=== PATIENT | female | born 1940 | race Two or more races ===

== ENCOUNTER 2021-06-12 09:35 | Emergency (ER) | payer OTHER ==
[~2021-06-12] VITALS: Ht 162.6 cm; Wt 113.4 kg
[2021-06-12 11:11] LABS: Basophils # (auto) 0 10 ^3/uL (0-0.2); Eosinophils # (auto) 0.1 10 ^3/uL (0-0.8); Lymphocytes # (auto) 0.3 10 ^3/uL (0.4-5.4); Lymphocytes % (auto) 30.3 % (10.0-50.0); Monocytes # (auto) 0 10 ^3/uL (0-1.3)
[2021-06-12 11:14] LABS: Basophils % (auto) 1.2 % (0.0-2.0); Eosinophils % (auto) 10.3 % (0.0-7.0); Hematocrit 18.5 % (36.0-46.0); Mean Corpuscular Hemoglobin 33.2 pg (28.0-32.0); Mean Corpuscular Volume 90.6 fL (80.0-100.0); Monocytes % (auto) 1.5 % (0.0-12.0); Neutrophils # (auto) 0.6 10 ^3/uL (1.6-8.6); Neutrophils % (auto) 56.7 % (37.0-80.0); Nucleated Red Blood Cells % 0.3 %; Red Blood Cells 2.04 10^6/uL (4.0-5.20); Red Cell Distribution Width 15.8 % (11.8-14.3)
[2021-06-12 11:28] LABS: Albumin 3.3 g/dL (3.4-5.0); Calcium 8.9 mg/dL (8.5-10.1); Potassium 3.2 mmol/L (3.5-5.1)
[2021-06-12 11:35] LABS: Bilirubin, Total 1.2 mg/dL (0.2-1.0); Total Protein 6.8 g/dL (6.4-8.2)
[2021-06-12 11:39] LABS: Hemoglobin 6.8 g/dL (12.2-16.2); Mean Corpuscular Hgb Conc. 36.6 g/dL (32.0-36.0); White Blood Cell 1.1 10^3/uL (4.4-10.8)
[2021-06-12 12:45] LABS: Urine Bacteria NONE SEEN /hpf (None Seen); Urine Blood Negative /uL (Negative); Urine Specific Gravity 1.006 (1.001-1.035); Urine WBC 1 /hpf (0 - 5)
[2021-06-12 15:09] VITALS: BP 132/54
[2021-06-12 15:24] VITALS: BP 142/55
[2021-06-12 16:09] VITALS: BP 139/57
== END 2021-06-12 16:54 | disposition short-term general hospital (02) ==
LOC: ER 09:35
DX: D64.89 Other specified anemias (principal)
CPT/HCPCS: 36415; 36430; 70450; 71045; 80053; 81001; 84484; 85025; 86850; 86900; 86901; 86920; 93005; 99291; P9016

== ENCOUNTER 2021-06-25 12:23 | Emergency (ER) | payer OTHER ==
[~2021-06-25] VITALS: Ht 160 cm; Wt 83.0 kg
[2021-06-25] MEDS ORDERED: SODIUM CHLORIDE 0.9% 1,000 ML IV ONE (13:30)
[2021-06-25 14:51] LABS: Hematocrit 18.4 % (36.0-46.0); Mean Corpuscular Hemoglobin 33.6 pg (28.0-32.0); Mean Corpuscular Volume 91.5 fL (80.0-100.0); Red Blood Cells 2.01 10^6/uL (4.0-5.20); Red Cell Distribution Width 15.2 % (11.8-14.3)
[2021-06-25 15:01] LABS: Mean Corpuscular Hgb Conc. 36.8 g/dL (32.0-36.0)
[2021-06-25 15:03] LABS: Magnesium 1.7 mg/dL (1.6-2.6)
[2021-06-25 15:05] LABS: Potassium 3.6 mmol/L (3.5-5.1)
[2021-06-25 15:06] LABS: Hemoglobin 6.8 g/dL (12.2-16.2); White Blood Cell 1.7 10^3/uL (4.4-10.8)
[2021-06-25 15:07] LABS: Band Neutrophils % (manual) 0; Basophils % (manual) 0 (0.0-2.0); Blast Cells 0; Eosinophils % (manual) 0 (0-7); Metamyelocytes % 0; Myelocytes % 0; Promyelocytes % 0; Reactive Lymphocytes 0
[2021-06-25 15:14] LABS: Albumin 3.3 g/dL (3.4-5.0); BUN/Creatinine Ratio 23.9; Bilirubin, Total 0.9 mg/dL (0.2-1.0); Calcium 8.9 mg/dL (8.5-10.1); Total Protein 6.3 g/dL (6.4-8.2)
[2021-06-25 16:00] LABS: Lymphocytes % (manual) 43 (10.0-50.0); Monocytes % (manual) 6 (0-12)
[2021-06-25 18:45] VITALS: BP 135/55
[2021-06-25 19:00] VITALS: BP 141/55
[2021-06-25 19:32] VITALS: BP 146/59
[2021-06-25 22:39] VITALS: BP 154/63
== END 2021-06-26 01:12 | disposition left against medical advice (07) ==
LOC: ER 12:23
DX: C91.00 Acute lymphoblastic leukemia not having achieved remission (principal); D70.9 Neutropenia, unspecified; I12.9 Hypertensive chronic kidney disease with stage 1 through stage 4 chronic kidney disease, or unspecified chronic kidney disease; N18.30 Chronic kidney disease, stage 3 unspecified; D61.818 Other pancytopenia; D69.6 Thrombocytopenia, unspecified; E44.1 Mild protein-calorie malnutrition; Z68.32 Body mass index [BMI] 32.0-32.9, adult
CPT/HCPCS: 36415; 36430; 71045; 80053; 83735; 84484; 85007; 85027; 86850; 86900; 86901; 86920; 93005; 96360; 96361; 99285; J7030; P9016